=== PATIENT | female | born 1985 | race Caucasian/White ===

== ENCOUNTER 2017-08-02 15:31 | Emergency (ER) | payer OTHER ==
[2017-08-02 15:39] VITALS: BP 132/69; PULSE 97; RESP 16; TEMP 97; O2SAT 100
--- NOTE | 2017-08-02 16:57 | ED PDOC ---
HPI: Eye Injury/Pain Time Seen by Provider: 08/02/17 16:05 Chief Complaint (Nursing): Eye Problem Chief Complaint (Provider): Bruising to left eye History Per: Patient History/Exam Limitations: no limitations Onset/Duration Of Symptoms: Hrs Current Symptoms Are (Timing): Still Present Injury To Eye?: No Associated Symptoms: denies: Pain, Decreased Vision, Swelling, Discharge From Eye Additional Complaint(s): Deborah Boudreaux, a 32 year old female, presents to the ED with bruising around her left eye. The patient states that she went to sleep with her eyes normal and woke up to her left eye bruised. She states that she does not recall any trauma to the eye. Denies trauma, change in vision. Past Medical History Reviewed: Historical Data, Nursing Documentation, Vital Signs Vital Signs: Last Vital Signs Temp 97.0 F L 08/02/17 15:36 Pulse 97 H 08/02/17 15:36 Resp 16 08/02/17 15:36 BP 132/69 08/02/17 15:36 Pulse Ox 100 08/02/17 15:36 - Medical History PMH: No Chronic Diseases - Surgical History Surgical History: No Surg Hx - Family History Family History: States: Unknown Family Hx - Living Arrangements Living Arrangements: With Family - Social History Current smoker - smoking cessation education provided: No Ex-Smoker (has not smoked in the last 12 months): No Alcohol: None Drugs: Denies - Allergies Allergies/Adverse Reactions: Allergies Allergy/AdvReac Type Severity Reaction Status Date / Time No Known Allergies Allergy Verified 08/02/17 15:36 Review of Systems ROS Statement: Except As Marked, All Systems Reviewed And Found Negative Eyes: Positive for: Other (bruising to left eye) Physical Exam - Reviewed Nursing Documentation Reviewed: Yes Vital Signs Reviewed: Yes - Physical Exam Appears: Positive for: Non-toxic, No Acute Distress Head Exam: Positive for: ATRAUMATIC, NORMAL INSPECTION, NORMOCEPHALIC Skin: Positive for: Normal Color, Warm, Dry. Negative for: Rash Eye Exam: Positive for: EOMI, PERRL, Other (small area of ecchymosis around left inferior orbital area.). Negative for: Normal appearance (Tenderness to left maxillary sinus), Nystagmus, Conjunctival injection Neurologic/Psych: Positive for: Alert, Oriented, Gait - Laboratory Results Result Diagrams: 08/02/17 17:03 08/02/17 17:03 - ECG O2 Sat by Pulse Oximetry: 100 (RA) Pulse Ox Interpretation: Normal Medical Decision Making Medical Decision Makin Initial Impression: 32 y/o female presenting with bruising to left eye Initial Plan: * CMP * CBC * PTT * Prothrombin Time * Reevaluation Scribe Attestation Documented by Tamanna Cornejo acting as a scribe for Krystle Vasquez PA-C. Scribe Attestation All medical record entries made by the Scribe were at my direction and personally dictated by me. I have reviewed the chart and agree that the record accurately reflects my personal performance of the history, physical exam, medical decision making, and the department course for this patient. I have also personally directed, reviewed, and agree with the discharge instructions and disposition. Disposition - Clinical Impression Clinical Impression: Spontaneous hematoma of skin - Disposition Forms: [employer] (Persian)
[2017-08-02 17:22] LABS: HEMATOCRIT 31.6 % (34.0-47.0); MEAN CELL VOLUME 73.2 fl (81.0-99.0); MEAN CORPUSCULAR HEMOGLOBIN 22.6 pg (27.0-31.0); MEAN CORPUSCULAR HGB CONC 30.8 g/dL (33.0-37.0); WHITE BLOOD COUNT 8.7 K/uL (4.8-10.8)
[2017-08-02 17:33] LABS: ALB/GLOB RATIO 1.4 (1.0-2.1); ALKALINE PHOSPHATASE 38 U/L (38-126); ALT/SGPT 18 U/L (9-52); AST/SGOT 20 U/L (14-36); BILIRUBIN,TOTAL 0.5 mg/dl (0.2-1.3); BLOOD UREA NITROGEN 10 mg/dl (7-17); CALCIUM 9.3 mg/dL (8.4-10.2); CARBON DIOXIDE 24 mmol/L (22-30); CHLORIDE 108 mmol/L (98-107); GFR AFRICAN-AMERICAN > 60; GLUCOSE,RANDOM 85 mg/dL (65-105); POTASSIUM 4.9 MMOL/L (3.6-5.0); SODIUM 141 mmol/l (132-148); TOTAL PROTEIN 7.2 G/DL (6.3-8.2)
== END 2017-08-02 18:31 | disposition home or self-care (01) ==
LOC: H.ER 15:31
DX: H57.8 Other specified disorders of eye and adnexa (principal)